=== PATIENT | male | born 1995 | race Caucasian/White ===

== ENCOUNTER 2019-07-21 23:50 | Emergency (ER) | payer SELFPAY ==
[2019-07-22] MEDS ORDERED: Naloxone HCl 2 mg/2 ml Syringe ONE (00:06)
--- NOTE | 2019-07-25 03:16 | EKG ---
Test Reason : Blood Pressure : / mmHG Vent. Rate : 122 BPM Atrial Rate : 122 BPM P-R Int : 146 ms QRS Dur : 078 ms QT Int : 290 ms P-R-T Axes : 044 015 031 degrees QTc Int : 413 ms Sinus tachycardia Left atrial enlargement Borderline ECG Confirmed by ANITA VILCHIS DO ([id number]), society editor COOKIE FULLER ([id number]) on 07/25/2019 3:15:17 AM Referred By: Confirmed By:ANITA VILCHIS DO
== END 2019-07-22 00:18 ==
LOC: ERS 23:50
DX: F15.129 Other stimulant abuse with intoxication, unspecified (principal)
CPT/HCPCS: 93005; J2310

== ENCOUNTER 2019-07-22 01:43 | Emergency (ER) | payer OTHER | END 2019-07-22 02:40 | LOC: ERS 01:43 | DX: R53.83 Other fatigue (principal) | CPT/HCPCS: 99283 ==